=== PATIENT | female | born 1965 | race Hispanic/Latino ===

== ENCOUNTER 2019-01-14 19:51 | Emergency (ER) | payer SELFPAY ==
[2019-01-14] MEDS ORDERED: ASPIRIN PO ONE (20:05)
--- NOTE | 2019-01-14 20:08 | Event Note ---
ED Screening Note Date of service: 01/14/19 Time: 20:04 ED Screening Note: This is a 53 y.o. F. that presents to the ER with worsening chest pain and SOB x 1 week. Current smoker, 1 ppd This initial assessment/diagnostic orders/clinical plan/treatment(s) is/are subject to change based on patients health status, clinical progression and re- assessment by fellow clinical providers in the ED. Further treatment and workup at subsequent clinical providers discretion. Patient/guardian urged not to elope from the ED as their condition may be serious if not clinically assessed and managed. Initial orders include: Labs, CXR, and EKG
[2019-01-14 20:28] LABS: Basophils # (Auto) 0.1 K/mm3 (0.0-0.1); Basophils % (Auto) 0.6 % (0.0-1.8); Eosinophils # (Auto) 0.1 K/mm3 (0.0-0.4); Eosinophils % (Auto) 1.1 % (0.0-4.3); Hematocrit 43.6 % (30.3-42.9); Lymphocytes # (Auto) 3.1 K/mm3 (1.2-5.4); Mean Corpuscular HGB Conc 35 % (30-34); Mean Corpuscular Volume 95 fl (79-97); Monocytes # (Auto) 0.6 K/mm3 (0.0-0.8); Monocytes % (Auto) 6.5 % (0.0-7.3); Platelet Count 194 K/mm3 (140-440); Red Blood Count 4.59 M/mm3 (3.65-5.03); Red Cell Distribution Width 13.4 % (13.2-15.2)
[2019-01-14 20:51] LABS: BUN/Creatinine Ratio 18; Blood Urea Nitrogen 9 mg/dL (7-17); Calcium 9.1 mg/dL (8.4-10.2); Hemolysis Index 54
--- NOTE | 2019-01-14 21:15 | Emergency Department Report ---
ED Chest Pain HPI - General Chief Complaint: Dyspnea/Respdistress Stated Complaint: CHEST PAIN, CHEST TIGHTNESS Time Seen by Provider: 01/14/19 20:04 Source: patient Mode of arrival: Ambulatory Limitations: No Limitations - History of Present Illness Initial Comments: Patient is 53 years old female with history of asthma. Patient presented to the ER complaining of chest pain, tightness, substernal with no radiation. Patient stated that she has been having shortness of breath for the last week. She also stated that she feel like her abdomen is distended. Patient denied any history of liver or heart problem before. Patient denied any fever, chills, nausea or vomiting. Patient found to have oxygen saturation of 93%. MD Complaint: chest pain -: week(s) Pain Location: substernal Severity: moderate Severity scale (0 -10): 6 Quality: tightness Consistency: constant - Related Data Previous Rx's Medication Instructions Recorded Last Taken Type HYDROcodone/APAP 5-325 [Gary 1 each PO Q6HR PRN #20 tablet 10/14/13 Unknown Rx 5-325 mg TAB] raNITIdine HCl [Ranitidine] 150 mg PO Q12H #60 tablet 10/14/13 Unknown Rx Allergies Allergy/AdvReac Type Severity Reaction Status Date / Time No Known Allergies Allergy Verified 10/14/13 01:55 Heart Score - HEART Score History: Moderately suspicious EKG: Non-specific Age: 45-65 Risk factors: 1-2 risk factors Troponin: < normal limit HEART Score: 4 - Critical Actions Critical Actions: 4-6 pts:12-16.6% risk of adverse cardiac event. Should be admitted ED Review of Systems ROS: Stated complaint: CHEST PAIN, CHEST TIGHTNESS Other details as noted in HPI Comment: All other systems reviewed and negative Constitutional: denies: chills, fever Respiratory: cough, orthopnea, shortness of breath, SOB with exertion, SOB at rest Cardiovascular: chest pain, palpitations Gastrointestinal: denies: nausea, vomiting, diarrhea, constipation, hematemesis, melena, hematochezia Genitourinary: denies: urgency, dysuria Musculoskeletal: denies: back pain Neurological: denies: headache, weakness, numbness, paresthesias, confusion, abnormal gait ED Past Medical Hx - Past Medical History Previous Medical History?: Yes Hx Asthma: Yes - Surgical History Past Surgical History?: Yes Additional Surgical History: hysterectomy. x3 - Social History Smoking Status: Current Every Day Smoker Substance Use Type: Marijuana - Medications Home Medications: Home Medications Medication Instructions Recorded Confirmed Last Taken Type HYDROcodone/APAP 5-325 [Gary 1 each PO Q6HR PRN #20 tablet 10/14/13 Unknown Rx 5-325 mg TAB] raNITIdine HCl [Ranitidine] 150 mg PO Q12H #60 tablet 10/14/13 Unknown Rx ED Physical Exam - General Limitations: No Limitations General appearance: alert, in no apparent distress - Head Head exam: Present: atraumatic, normocephalic, normal inspection - Eye Eye exam: Present: normal appearance, PERRL - ENT ENT exam: Present: normal exam, normal orophraynx, mucous membranes moist - Neck Neck exam: Present: normal inspection, full ROM. Absent: tenderness, meningismus, lymphadenopathy, thyromegaly - Respiratory Respiratory exam: Present: respiratory distress, wheezes, rales, rhonchi, decreased breath sounds. Absent: stridor, chest wall tenderness, accessory muscle use, prolonged expiratory - Cardiovascular Cardiovascular Exam: Present: regular rate, normal rhythm, normal heart sounds - GI/Abdominal GI/Abdominal exam: Present: soft, distended, normal bowel sounds. Absent: tenderness, guarding, rebound, rigid, organomegaly, mass, bruit, pulsatile mass, hernia - Extremities Exam Extremities exam: Present: normal inspection, full ROM, normal capillary refill. Absent: pedal edema, calf tenderness - Back Exam Back exam: Present: normal inspection, full ROM. Absent: tenderness, CVA tenderness (R), CVA tenderness (L), muscle spasm, paraspinal tenderness, vertebral tenderness - Neurological Exam Neurological exam: Present: alert, oriented X3, CN II-XII intact, normal gait, reflexes normal - Skin Skin exam: Present: warm, intact, normal color ED Course Vital Signs 01/14/19 01/14/19 01/14/19 19:58 20:52 20:57 Temperature 97.7 F 98 F Pulse Rate 101 H 86 Pulse Rate [ Anterior] Respiratory 18 17 Rate Respiratory Rate [Anterior] Blood Pressure 143/95 Blood Pressure 120/64 [Left] O2 Sat by Pulse 93 97 98 Oximetry 01/14/19 01/14/19 01/14/19 21:00 21:10 21:16 Temperature Pulse Rate 84 79 Pulse Rate [ 78 Anterior] Respiratory 17 20 Rate Respiratory 19 Rate [Anterior] Blood Pressure 107/77 107/77 Blood Pressure [Left] O2 Sat by Pulse 97 97 Oximetry 01/14/19 01/14/19 01/14/19 21:26 21:30 21:44 Temperature Pulse Rate 83 Pulse Rate [ 81 Anterior] Respiratory 16 18 Rate Respiratory 19 Rate [Anterior] Blood Pressure 107/77 Blood Pressure [Left] O2 Sat by Pulse 95 Oximetry 01/14/19 01/14/19 01/14/19 21:46 21:56 22:00 Temperature Pulse Rate 80 81 Pulse Rate [ Anterior] Respiratory 13 16 16 Rate Respiratory Rate [Anterior] Blood Pressure 107/77 126/71 Blood Pressure [Left] O2 Sat by Pulse 99 96 Oximetry 01/14/19 01/14/19 01/14/19 22:10 22:15 22:31 Temperature Pulse Rate 82 82 79 Pulse Rate [ Anterior] Respiratory 15 16 15 Rate Respiratory Rate [Anterior] Blood Pressure 126/71 126/71 126/71 Blood Pressure [Left] O2 Sat by Pulse 92 90 92 Oximetry 01/14/19 01/15/19 23:00 00:00 Temperature Pulse Rate 78 75 Pulse Rate [ Anterior] Respiratory 14 15 Rate Respiratory Rate [Anterior] Blood Pressure 108/54 108/54 Blood Pressure [Left] O2 Sat by Pulse 95 91 Oximetry ED Medical Decision Making - Lab Data Result diagrams: 01/14/19 20:15 01/14/19 20:15 - EKG Data -: EKG Interpreted by [place] EKG shows normal: sinus rhythm Rate: normal - EKG Data Interpretation: no acute changes - Radiology Data Radiology results: report reviewed Chest x-ray is unremarkable. - Medical Decision Making Patient is 53 years old female with history of asthma. Patient presented to the ER complaining of chest pain, tightness, substernal with no radiation. Patient stated that she has been having shortness of breath for the last week. She also stated that she feel like her abdomen is distended. Patient denied any history of liver or heart problem before. Patient denied any fever, chills, nausea or vomiting. Patient found to have oxygen saturation of 93%. Patient received albuterol, Atrovent and Solu-Medrol. Patient also received morphine and Zofran. Patient stated that she is feeling much better. Labs reviewed and is unremarkable. CT abdomen and pelvis showed no acute abnormality. Patient advised to follow with her primary care physician in the next 2-3 days and to attend to the ER if symptoms are not improved. Critical care attestation.: If time is entered above; I have spent that time in minutes in the direct care of this critically ill patient, excluding procedure time. ED Disposition Clinical Impression: Chest pain, Shortness of breath, Asthma exacerbation Disposition: TO HOME OR SELFCARE Is pt being admited?: No Condition: Stable Instructions: Chest Pain (ED) Referrals: GORAN GALVEZ MD [Primary Care Provider] - 3-5 Days
[2019-01-14] MEDS ORDERED: ATROVENT IH ONE (21:20)
[2019-01-14] MEDS ORDERED: PROVENTIL IH ONE (21:20)
--- NOTE | 2019-01-14 21:20 | XRay Report ---
CHEST 2 VIEWS INDICATION / CLINICAL INFORMATION: Chest Pain. COMPARISON: None available. FINDINGS: SUPPORT DEVICES: None. HEART / MEDIASTINUM: No significant abnormality. LUNGS / PLEURA: No significant pulmonary or pleural abnormality. No pneumothorax. ADDITIONAL FINDINGS: No significant additional findings. IMPRESSION: 1. No acute findings. Signer Name: Tristen Sr MD Signed: 01/14/2019 9:15 PM Workstation Name: [id number]
[2019-01-14] MEDS ORDERED: SOLU-Medrol IV ONE (21:23)
[2019-01-14] MEDS ORDERED: MORPHINE ONE (21:24)
[2019-01-14] MEDS ORDERED: ZOFRAN ONE (21:25)
[2019-01-14] MEDS ORDERED: MORPHINE IV ONE (21:26)
[2019-01-14] MEDS ORDERED: ZOFRAN IV ONE (21:26)
[2019-01-14 21:42] LABS: INR 0.94 (0.87-1.13)
[2019-01-14 21:55] LABS: Alanine Aminotransferase 10 units/L (7-56); Albumin 4.4 g/dL (3.9-5)
[2019-01-14 22:17] LABS: Bilirubin,Direct < 0.2 mg/dL (0-0.2)
--- NOTE | 2019-01-15 01:45 | Cat Scan Report ---
CT of the abdomen and pelvis with contrast INDICATION: Abdominal pain and distention COMPARISON: 10/14/2013 FINDINGS: Lung bases are clear. The liver, spleen, pancreas, adrenal glands and kidneys show no signi ficant abnormalities with small low-density renal lesions again seen which are probably cysts. No def inite gallbladder or biliary tree abnormality. No fluid or adenopathy in the upper abdomen. CT of the pelvis shows a normal appendix. Uterus has been removed. Bladder is moderately distended. N o pelvic or inguinal adenopathy. No diverticulosis or diverticulitis. There is no bowel obstruction s een. IMPRESSION: Negative study. No bowel obstruction or inflammatory process seen. Automated exposure control was utilized to diminish radiation dose. Signer Name: Rhett Koo MD Signed: 01/15/2019 1:41 AM Workstation Name: [id number]
[2019-01-15 05:54] VITALS: BP 103/64
== END 2019-01-15 03:05 | disposition home or self-care (01) ==
LOC: ED 19:51
DX: J45.901 Unspecified asthma with (acute) exacerbation (principal); R07.89 Other chest pain
CPT/HCPCS: 36415; 71046; 74177; 80048; 80076; 83880; 84484; 85025; 85610; 85730; 93005; 93010; 94644; 96374; 96375; 99285; J2270; J2405; J2930; Q9967; 94640

== ENCOUNTER → 2019-10-30 18:47 | Emergency (ER) | payer SELFPAY | END | disposition left against medical advice (07) | LOC: ED 18:47 | DX: M54.9 Dorsalgia, unspecified (principal); Z53.21 Procedure and treatment not carried out due to patient leaving prior to being seen by health care provider ==